=== PATIENT | male | born 1995 | race African-American/Black ===

== ENCOUNTER 2020-09-22 17:26 | Emergency (ER) | payer SELFPAY ==
[~2020-09-22] VITALS: Ht 193 cm; Wt 108.8 kg
[~2020-09-22 17:26] MED LIST: ALBU2.5V11; ALBU8.5H8; CEFD300C37 PO; METH4TAB2 PO
[2020-09-22] MEDS ORDERED: ALBUTEROL SULFATE 2.5 MG/3 ML NPPB ONE (18:00)
--- NOTE | 2020-09-22 18:40 | NUR ---
POST BREATHING TREATMENT PATIENT WOB MARKEDLY IMPROVED "I'M LIKE A 11/10 NOW, MUCH BETTER." STILL ASKING TO USE O2 DESPITE ROOM AIR POX 95-99% PROVIDER MADE AWARE
--- NOTE | 2020-09-22 18:50 | NUR ---
REPORT TO CLAUDIA MORE
--- NOTE | 2020-09-22 18:56 | NUR ---
bedside report received from Sen MORE
[2020-09-22 18:57] VITALS: BP 106/81
--- NOTE | 2020-09-22 19:04 | NUR ---
Patient given discharge instructions and they have confirmed that they understand the instructions. Patient ambulatory with steady gait.
== END 2020-09-22 19:06 | disposition home or self-care (01) ==
LOC: ED 18:37
DX: J45.31 Mild persistent asthma with (acute) exacerbation (principal); R00.0 Tachycardia, unspecified
CPT/HCPCS: 93005; 94640; 99283; J7512; J7613